=== PATIENT | female | born 1970 | race Caucasian/White ===

== ENCOUNTER 2016-06-03 17:29 | Emergency (ER) | payer SELFPAY ==
[~2016-06-03] VITALS: Ht 170.2 cm; Wt 69.9 kg
[~2016-06-03 17:29] MED LIST: BENZ-57 PO; LEVO100T7 PO; LPT40 PO; METF500T5 PO; PXL20 PO; SYMIN160 INH
[2016-06-03 17:33] VITALS: TEMP 36.9; Ht 170.2 cm; Wt 69.9 kg
[2016-06-03] MEDS ORDERED: VNTHFA/IN INH (18:40)
[2016-06-03] MEDS ORDERED: SODIUM CHLORIDE 0.9% 1000ML 1,000 ML IV STA (18:46)
[2016-06-03] MEDS ORDERED: ONDANSETRON INJ 2 MG/ML 2 ML VIAL IV STA (18:46)
[2016-06-03] MEDS ORDERED: DIPH-437 PO (18:56)
[2016-06-03] MEDS ORDERED: AMLO5CAP2 PO (19:05)
[2016-06-03 19:37] LABS: BASO % 0.5 %; BASO ABS # 0.04 K/uL (0-0.2); COMPLETE YES; EOS % 0.3 %; HEMATOCRIT 48.7 % (37-47); IG% 0.2 %; LYMPH % 23.5 %; LYMPH ABS # 2.06 K/uL (1.2-3.4); MEAN CELL VOLUME 77.9 fL (80-100); MEAN CORPUSCULAR HEMOGLOBIN 28.5 pg (25-34); MEAN CORPUSCULAR HGB CONC 36.6 g/dl (32-36); MEAN PLATELET VOLUME 9.2 fL (7.4-10.4); NEUT % 66.5 %; PLATELET COUNT 179 K/uL (130-400); RED BLOOD COUNT 6.25 M/uL (4.2-5.4); WHITE BLOOD COUNT 8.76 K/uL (4.8-10.8)
[2016-06-03 19:57] LABS: ALT/SGPT 32 U/L (12-78); AST/SGOT 21 U/L (15-37); BLOOD UREA NITROGEN 25 mg/dl (7-18); BUN/CREATININE RATIO 25.8 (10-20); CALCIUM 9.5 mg/dl (8.5-10.1); CARBON DIOXIDE 15 mmol/L (21-32); CHLORIDE 104 mmol/L (98-107); CREATININE 0.98 mg/dl (0.60-1.20); GLUCOSE 101 mg/dl (70-99); SODIUM 134 mmol/L (136-145)
[2016-06-03 20:00] LABS: ALKALINE PHOSPHATASE 90 U/L (45-117)
[2016-06-03] MEDS ORDERED: POTASSIUM CHLORIDE 10 MEQ / 100ML WTR IV STA (20:18)
[2016-06-03] MEDS ORDERED: POTASSIUM CHLORIDE 10 MEQ TABCR PO STA (20:18)
[2016-06-03 21:29] VITALS: BP 114/77; PULSE 88; O2SAT 98
[2016-06-03] MEDS ORDERED: ONDANSETRON HOME PACK 4MG OD TAB PO ONE (21:45)
--- NOTE | 2016-06-04 00:39 | EMERGENCY ROOM VISIT NOTE ---
History Report prepared by Jeanne: Lainey Payne Under the Supervision of: Dr. Efrain Hathaway M.D. First contact with patient: 18:40 Chief Complaint: DEHYDRATION Stated Complaint: SOB, FEVER, DEHYDRATION Nursing Triage Summary: Pt presents with c/o diarrhea since Sat night, decreased appetite, nausea. Pt states, "I have been trying to drink gingerale and gatorade, it's just not enough to keep my strength up. Any kind of exertion makes me sob." History of Present Illness The patient is a 46 year old female who presents to the Emergency Room with complaints of persistent diarrhea that began Wednesday. She currently rates her discomfort as a 5/10 in severity. The patient states that Wednesday she started with diarrhea and nausea, stating that her stool was loose and watery. She notes that she does not have a large intestine, so she states that her stool is always loose and watery. The patient states that today her diarrhea is worse than normal. She denies any recent antibiotic use or foreign travel. The patient denies any hematochezia or melena. She states that she has been trying to drink Gatorade, but states that she cannot keep anything in her. The patient denies any vomiting. She notes a decrease in appetite and states that she has had mild abdominal soreness. The patient states that today she has been feeling weak and dizzy, and notes her symptoms are worsening. She additionally notes that she had a fever, chills on Wednesday when her symptoms began. The patient notes sick contacts, stating that both her and granddaughter were sick with similar symptoms. Source of History: patient Onset: Wednesday Position: other (global) Symptom Intensity: 5/10 Quality: other (diarrhea) Timing: worsening, other (persistent) Associated Symptoms: + abdominal pain (soreness), + chills, + fevers, + nausea, + weakness, No hematochezia, No melena, No vomiting Review of Systems See HPI for pertinent positives & negatives. A total of 10 systems reviewed and were otherwise negative. Past Medical & Surgical Medical Problems: (1) Benign hypertension (2) diverticulosis (3) Small bowel obstruction Surgical Problems: (1) History of partial colectomy Family History Diabetes mellitus Hypertension Social History Smoking Status: Current Every Day Smoker Alcohol Use: none Drug Use: none Marital Status: Housing Status: lives with family Occupation Status: employed Current/Historical Medications Scheduled Acetaminophen/Diphenhydramine (Tylenol Pm), 2 TAB PO HS Albuterol Hfa (Ventolin Hfa), 1-2 PUFF INH Q4-6HRS Amlodipine/Benazepril (Lotrel 5MG/20MG), 1 CAP PO QAM Atorvastatin (Atorvastatin Calcium), 40 MG PO DAILY Levothyroxine Sodium (Levothyroxine Sodium), 100 MCG PO DAILY Metformin Hcl Er (Glucophage Er), 500 MG PO BID Allergies Coded Allergies: Latex (Verified Allergy, Severe, RASH,DYSPNEA, 05/07/15) Bupropion (Verified Allergy, Intermediate, Rash, 10/17/15) Penicillins (Verified Allergy, Unknown, 05/01/15) Clarithromycin (Verified Adverse Reaction, Mild, NAUSEA, METALLIC TASTE IN MOUTH, 10/17/15) Physical Exam Vital Signs Date Time Temp Pulse Resp B/P Pulse Ox O2 Delivery O2 Flow Rate FiO2 06/03/16 21:29 88 18 114/77 98 Room Air 06/03/16 20:42 89 18 122/73 98 Room Air 06/03/16 19:33 111 18 115/83 100 Room Air 06/03/16 19:23 91 16 116/84 97 Room Air 106 129/78 125 115/83 06/03/16 17:33 36.9 110 20 106/75 100 Room Air Physical Exam Constitutional: Vital signs reviewed. Eyes: Pupils are equal round reactive to light. Conjunctiva are noninjected. ENT: Pharynx is clear without erythema or exudate. Mucous membranes are dry. Neck supple without meningeal signs. Respiratory: Clear to auscultation bilaterally. Breath sounds are equal bilaterally. Cardiovascular: Regular rate and rhythm. No rubs or gallops. GI: Soft, nondistended and nontender. Bowel sounds are present. Musculoskeletal: No peripheral edema. No lower extremity tenderness. Integumentary: No cyanosis. Neurological: The patient is awake and alert. No focal deficits. Psychiatric: Normal affect. Medical Decision & Procedures Laboratory Results 06/03/16 19:20 Red Blood Count 6.25, Mean Corpuscular Volume 77.9, Mean Corpuscular Hemoglobin 28.5, Mean Corpuscular Hemoglobin Concent 36.6, Mean Platelet Volume 9.2, Neutrophils (%) (Auto) 66.5, Lymphocytes (%) (Auto) 23.5, Monocytes (%) (Auto) 9.0, Eosinophils (%) (Auto) 0.3, Basophils (%) (Auto) 0.5, Neutrophils # (Auto) 5.82, Lymphocytes # (Auto) 2.06, Monocytes # (Auto) 0.79, Eosinophils # (Auto) 0.03, Basophils # (Auto) 0.04 06/03/16 19:20 Test 06/03/16 19:20 White Blood Count 8.76 K/uL (4.8-10.8) Red Blood Count 6.25 M/uL (4.2-5.4) Hemoglobin 17.8 g/dL (12.0-16.0) Hematocrit 48.7 % (37-47) Mean Corpuscular Volume 77.9 fL (80-100) Mean Corpuscular Hemoglobin 28.5 pg (25-34) Mean Corpuscular Hemoglobin Concent 36.6 g/dl (32-36) Platelet Count 179 K/uL (130-400) Mean Platelet Volume 9.2 fL (7.4-10.4) Neutrophils (%) (Auto) 66.5 % Lymphocytes (%) (Auto) 23.5 % Monocytes (%) (Auto) 9.0 % Eosinophils (%) (Auto) 0.3 % Basophils (%) (Auto) 0.5 % Neutrophils # (Auto) 5.82 K/uL (1.4-6.5) Lymphocytes # (Auto) 2.06 K/uL (1.2-3.4) Monocytes # (Auto) 0.79 K/uL (0.11-0.59) Eosinophils # (Auto) 0.03 K/uL (0-0.5) Basophils # (Auto) 0.04 K/uL (0-0.2) RDW Standard Deviation 36.6 fL (36.4-46.3) RDW Coefficient of Variation 13.0 % (11.5-14.5) Immature Granulocyte % (Auto) 0.2 % Immature Granulocyte # (Auto) 0.02 K/uL (0.00-0.02) Anion Gap 15.0 mmol/L (3-11) Est Creatinine Clear Calc Drug Dose 69.0 ml/min Estimated GFR () 79.6 Estimated GFR (Non- 68.7 BUN/Creatinine Ratio 25.8 (10-20) Calcium Level 9.5 mg/dl (8.5-10.1) Total Bilirubin 0.6 mg/dl (0.2-1) Direct Bilirubin < 0.1 mg/dl (0-0.2) Aspartate Amino Transf (AST/SGOT) 21 U/L (15-37) Alanine Aminotransferase (ALT/SGPT) 32 U/L (12-78) Alkaline Phosphatase 90 U/L (45-117) Total Protein 8.5 gm/dl (6.4-8.2) Albumin 4.4 gm/dl (3.4-5.0) Lipase 151 U/L (73-393) Laboratory results as reviewed by me. Medications Administered Medications (Trade) Dose Ordered Sig/Kassy Route Start Time Stop Time Status Last Admin Dose Admin Sodium Chloride (Nss 1000ml) 1,000 ml @ 999 mls/hr Q1H1M STAT IV 06/03/16 18:46 06/03/16 19:46 DC 06/03/16 19:22 999 MLS/HR Ondansetron HCl (Zofran Inj) 4 mg NOW STAT IV 06/03/16 18:46 06/03/16 18:47 DC 06/03/16 19:23 4 MG Potassium Chloride (Kcl 10 Meq / Wtr) 10 meq NOW STAT IV 06/03/16 20:18 06/03/16 20:19 DC 06/03/16 20:26 10 MEQ Potassium Chloride (Klor-Con M10) 40 meq NOW STAT PO 06/03/16 20:18 06/03/16 20:19 DC 06/03/16 20:26 40 MEQ Ondansetron HCl (ZOFRAN ODT 4MG Home Pack) 1 homepack UD ONCE PO 06/03/16 21:45 06/03/16 21:46 DC 06/03/16 21:42 1 HOMEPACK ED Course 1841: The patient was evaluated in room C10. A complete history and physical exam was performed. 1845: Ordered Zofran Inj 4 mg IV, Sodium Chloride 1000 ml @ 999 mls/hr IV. 2107: I reevaluated the patient and she is feeling better. Ordered Potassium chloride 40 meq PO, Potassium Chloride 10 meq IV. 2136: I reevaluated the patient and she is feeling better. I discussed the exam findings with her and I discussed the treatment plan. She verbalized complete understanding and agreement. 2144: Ordered Zofran Odt 4 mg homepack 1 homepack PO. Medical Decision This is a 46-year-old female who presents with diarrhea. Differential diagnosis includes dehydration, foodborne illness, enteritis, electrolyte abnormality, dumping syndrome. I did perform a limited focused review of portions of the patient's old chart on the electronic medical record. The patient has had no recent pertinent visits to this hospital. I did evaluate the patient as noted above. The patient is presenting with diarrhea. Her family members had similar complaints. She is here because she feels dehydrated and nauseous. IV access was established. I did treat the patient with Zofran and normal saline IV. I did order and personally review the patient's 12-lead EKG and chest x-ray as described above. I did order and review the patient's blood work as noted in the electronic medical record. Her blood work is consistent with hemoconcentration and dehydration. She also has hypokalemia. She does have a history of chronic diarrhea with worsening diarrhea recently. She was given oral potassium and IV potassium. The patient was given a total of 1600 mL of normal saline. She did feel better. I did discuss the test results with her. She was discharged with a prescription for Zofran. Impression Primary Impression: Dehydration Additional Impressions: Hypokalemia Diarrhea Scribe Attestation The scribe's documentation has been prepared under my direct and personally reviewed by me in its entirety. I confirm that the note above accurately reflects all work, treatment, procedures, and medical decision making performed by me. Departure Information Dispostion Home / Self-Care Referrals Dhruv Javier M.D. (PCP) Forms HOME CARE DOCUMENTATION FORM, IMPORTANT VISIT INFORMATION, WORK / SCHOOL INSTRUCTIONS Patient Instructions Dehydration, Hypokalemia Dc, My [facility] Additional Instructions You have been examined and treated today on an emergency basis only. This is not a substitute for, or an effort to provide, complete comprehensive medical care. It is impossible to recognize and treat all injuries or illnesses in a single emergency department visit. It is therefore important that you follow up closely with your physician. Call as soon as possible for an appointment. Return for worsening symptoms or if you develop fever, vomiting, palpitations or any other concerning symptoms. Problem Qualifiers
== END 2016-06-03 21:42 | disposition home or self-care (01) ==
LOC: C.EDB 17:30 → C.EDC 21:42
DX: E86.0 Dehydration (principal); E87.6 Hypokalemia; R19.7 Diarrhea, unspecified; I10 Essential (primary) hypertension; F17.200 Nicotine dependence, unspecified, uncomplicated

== ENCOUNTER → 2016-12-18 | Outpatient (CLI) | payer OTHER ==
[~2016-12-18] MED LIST changes: +AMLO5CAP2 PO; -BENZ-57 PO; +DIPH-437 PO; -PXL20 PO; -SYMIN160 INH; +VNTHFA/IN INH
--- NOTE | 2016-12-18 12:52 | DIAGNOSTIC IMAGING REPORT ---
CHEST 2 VIEWS ROUTINE CLINICAL HISTORY: R05 Cough dyspnea COMPARISON STUDY: 10/15/2015 FINDINGS: The bones soft tissues and hemidiaphragms are normal. The cardiomediastinal silhouette is normal. The lungs are clear. The pulmonary vasculature is normal. IMPRESSION: Negative chest. The above report was generated using voice recognition software. It may contain grammatical, syntax or spelling errors. Electronically signed by: Dewey Woodward M.D. 12/18/2016 12:50 PM Dictated Date/Time: 12/18/2016 12:50 PM
--- NOTE | 2016-12-18 12:55 | DIAGNOSTIC IMAGING REPORT ---
LEFT SHOULDER 3 VIEWS HISTORY: Left shoulder pain. COMPARISON: None. FINDINGS: There is no fracture or dislocation. Left clavicle is intact. Soft tissues are unremarkable. No radiopaque foreign bodies. IMPRESSION: Unremarkable left shoulder. Electronically signed by: Paulie Woods M.D. 12/18/2016 12:54 PM Dictated Date/Time: 12/18/2016 12:52 PM
[2016-12-18 16:57] LABS: BASO % 0.4 %; BASO ABS # 0.04 K/uL (0-0.2); COMPLETE YES; HEMATOCRIT 41.7 % (37-47); IG% 0.3 %; LYMPH % 26.3 %; LYMPH ABS # 2.51 K/uL (1.2-3.4); MEAN CELL VOLUME 82.1 fL (80-100); MEAN CORPUSCULAR HGB CONC 34.1 g/dl (32-36); MEAN PLATELET VOLUME 9.4 fL (7.4-10.4); MONO % 4.4 %; NEUT % 66.6 %; PLATELET COUNT 174 K/uL (130-400); RED BLOOD COUNT 5.08 M/uL (4.2-5.4); WHITE BLOOD COUNT 9.56 K/uL (4.8-10.8)
[2016-12-18 17:08] LABS: BLOOD UREA NITROGEN 7 mg/dl (7-18); BUN/CREATININE RATIO 10.7 (10-20); CALCIUM 9.5 mg/dl (8.5-10.1); CARBON DIOXIDE 29 mmol/L (21-32); CHLORIDE 105 mmol/L (98-107); CREATININE 0.68 mg/dl (0.60-1.20); GLUCOSE 107 mg/dl (70-99); POTASSIUM 3.5 mmol/L (3.5-5.1); SODIUM 139 mmol/L (136-145)
== END | disposition home or self-care (01) ==
LOC: C.RADBC 11:55
PROVIDERS: ATTEND Internal Medicine
DX: R05 Cough (principal); M25.512 Pain in left shoulder

== ENCOUNTER 2017-07-23 15:19 | Emergency (ER) | payer OTHER ==
[~2017-07-23] VITALS: Ht 170.2 cm; Wt 65.0 kg
[2017-07-23 15:49] VITALS: TEMP 36.8; Ht 170.2 cm; Wt 65.0 kg
[2017-07-23 17:06] LABS: BASO % 0.3 %; BASO ABS # 0.02 K/uL (0-0.2); IG# 0.01 K/uL (0.00-0.02); LYMPH % 13.7 %; LYMPH ABS # 0.94 K/uL (1.2-3.4); MEAN CELL VOLUME 82.8 fL (80-100); MEAN CORPUSCULAR HEMOGLOBIN 27.6 pg (25-34); MEAN CORPUSCULAR HGB CONC 33.3 g/dl (32-36); MEAN PLATELET VOLUME 9.2 fL (7.4-10.4); MONO % 7.5 %; MONO ABS # 0.51 K/uL (0.11-0.59); NEUT % 78.4 %; NEUT ABS # 5.36 K/uL (1.4-6.5); PLATELET COUNT 189 K/uL (130-400); RED CELL DISTRIBUTION WIDTH CV 14.1 % (11.5-14.5); RED CELL DISTRIBUTION WIDTH SD 42.4 fL (36.4-46.3); WHITE BLOOD COUNT 6.84 K/uL (4.8-10.8)
[2017-07-23] MEDS ORDERED: ONDANSETRON INJ 2 MG/ML 2 ML VIAL IV STA (17:22)
[2017-07-23] MEDS ORDERED: SODIUM CHLORIDE 0.9% 1000ML 1,000 ML IV STA ×2 (17:22→18:35)
[2017-07-23 17:26] LABS: ALBUMIN 4.1 gm/dl (3.4-5.0); CALCIUM 9.4 mg/dl (8.5-10.1); CREATININE 0.88 mg/dl (0.60-1.20); POTASSIUM 3.6 mmol/L (3.5-5.1)
[2017-07-23 17:28] LABS: TOTAL PROTEIN 7.9 gm/dl (6.4-8.2)
[2017-07-23] MEDS ORDERED: LORA-741 PO (18:16)
[2017-07-23] MEDS ORDERED: TRAZ-122 PO (18:16)
--- NOTE | 2017-07-23 18:35 | EMERGENCY ROOM VISIT NOTE ---
ED Visit Note First contact with patient: 17:08 CHIEF COMPLAINT: Diarrhea, dehydration HISTORY OF PRESENTING ILLNESS: This is a 47-year-old female with past medical history of total colectomy secondary to diverticulitis and chronic diarrhea, who presents to the emergency department with complaint of worsening diarrhea for the past 3 days and concern for dehydration. Patient states she normally has anywhere from 5-8 episodes of loose and sometimes watery stool that is chronic for her. She states for the past 3 days she has been having anywhere from 15-20 episodes of watery stool and states that every time she eats or drinks it "runs right through me." She states that she has been having some associated nausea with this, and is concerned that she has not been keeping up with her fluids well enough, stating a concern for dehydration. She states that she has had episodes of severe diarrhea like this in the past secondary to her colectomy, and that this is not unusual for her. She denies any associated symptoms of fevers or chills, abdominal pain, vomiting, bloody or black stools, or urinary symptoms. She denies any recent travel, antibiotics, or hospitalization. REVIEW OF SYSTEMS: A complete 10 point review of systems was reviewed with the patient with pertinent positives and negatives as per history of present illness. All else were negative. PAST MEDICAL HISTORY: Reviewed in chart. SOCIAL HISTORY: Lives at home. Current everyday smoker. Denies alcohol or recreational drug use. ALLERGIES: Reviewed in chart. PHYSICAL EXAM: CONSTITUTIONAL: Pleasant and cooperative. No acute distress. Mildly dehydrated , but otherwise well appearing and well nourished. HEENT: Normocephalic, atraumatic. Pupils equal, round and reactive to light, EOMI. TMs normal. Pharynx normal. Tacky mucous membranes. NECK: Supple, full active range of motion without discomfort. No cervical adenopathy. RESPIRATORY: Clear to auscultation bilaterally with no wheezing, crackles, rhonchi or stridor. Equal expansion bilaterally. CARDIOVASCULAR: Regular rate and rhythm with no murmurs, rubs or gallops. Normal peripheral perfusion. No edema. GASTROINTESTINAL: Soft, nontender, nondistended. No rebound tenderness or guarding. No palpable masses or HSM. Bowel sounds present in all quadrants. No CVA tenderness. MUSCULOSKELETAL: Full range of motion of all joints without discomfort. INTEGUMENTARY: No rash or other significant dermatologic conditions noted. NEUROLOGIC: Alert and oriented X 4 with normal affect. Normal strength and sensation in all 4 extremities. No focal neurologic deficits noted. Normal speech. Normal gait observed. ED COURSE AND MEDICAL DECISION MAKING: CC: Patient presenting with complaint of diarrhea, dehydration DIFFERENTIAL DIAGNOSIS: Includes, but not limited to gastroenteritis, chronic diarrhea, dumping syndrome, dehydration, electrolyte abnormality, among others. INTERPRETATION OF LABS: No leukocytosis, no anemia, no significant electrolyte abnormalities, normal renal function, normal liver enzymes and lipase. Negative urine . MEDICATION RECONCILIATION: I attest that I have personally reviewed the patient 's current medication list. INITIAL VITAL SIGNS REVIEW: I reviewed the patient's initial vital signs and interpret them as follows: T: Afebrile; BP: Normotensive; HR: Tachycardic; RR : Within normal limits; Pulse Ox: Within normal limits on room air. Blood pressure screening: The patient was found to have normal blood pressure on screening and does not require follow-up for repeat blood pressure check. SUMMARY: Patient was evaluated at bedside, history and physical exam performed. Patient is alert and oriented, no acute distress, resting calmly in stretcher. Patient does appear mildly dehydrated is noted to be mildly tachycardic. The abdomen is soft and completely nontender on exam. Orders were placed at bedside for labs, UA and urine , IV fluids x2L for hydration, IV Zofran for nausea. Stool cultures ordered to rule out infection. Patient discussed with Dr. Hathaway, who agrees with my assessment and plan. Labs reviewed as above, unremarkable. Patient reassessed multiple times throughout ED stay, she reports that she is feeling much better after the IV fluids. She has been tolerating oral fluids without difficulty. She has been unable to provide a stool sample while in the emergency department , she was encouraged to seek stool studies through her PCP if she continues to have severe diarrhea. Patient was updated on all results and plan for discharge, she was encouraged to follow-up with her primary care provider. Patient was also given strict return precautions should her symptoms worsen, she verbalized understanding. Patient was discharged home in stable condition and ambulatory. Problem List Medical Problems: (1) Benign hypertension Status: Chronic (2) diverticulosis Status: Chronic Current/Historical Medications Scheduled Albuterol Hfa (Ventolin Hfa), 1-2 PUFF INH Q4-6HRS Amlodipine/Benazepril (Lotrel 5MG/20MG), 1 CAP PO QAM Atorvastatin (Lipitor), 40 MG PO DAILY Levothyroxine Sodium (Levothyroxine Sodium), 100 MCG PO DAILY Metformin Hcl Er (Glucophage Er), 500 MG PO BID Ondasetron Odt (Zofran Odt), 4 MG SL Q6H Trazodone Hcl (Desyrel), 100 MG PO HS Scheduled PRN Lorazepam (Ativan), 0.5 MG PO DAILY PRN for Anxiety/Agitation Allergies Coded Allergies: Latex (Verified Allergy, Severe, RASH,DYSPNEA, 07/23/17) Bupropion (Verified Allergy, Intermediate, Rash, 07/23/17) Penicillins (Verified Allergy, Unknown, 07/23/17) Clarithromycin (Verified Adverse Reaction, Mild, NAUSEA, METALLIC TASTE IN MOUTH, 07/23/17) Vital Signs Date Time Temp Pulse Resp B/P (MAP) Pulse Ox O2 Delivery O2 Flow Rate FiO2 07/23/17 21:40 78 18 116/68 98 07/23/17 20:14 78 18 106/55 98 Room Air 07/23/17 18:08 89 18 107/62 98 Room Air 07/23/17 15:49 36.8 109 20 114/74 95 Room Air Laboratory Results 07/23/17 15:33 Red Blood Count 5.80, Mean Corpuscular Volume 82.8, Mean Corpuscular Hemoglobin 27.6, Mean Corpuscular Hemoglobin Concent 33.3, Mean Platelet Volume 9.2, Neutrophils (%) (Auto) 78.4, Lymphocytes (%) (Auto) 13.7, Monocytes (%) (Auto) 7.5, Eosinophils (%) (Auto) 0.0, Basophils (%) (Auto) 0.3, Neutrophils # (Auto) 5.36, Lymphocytes # (Auto) 0.94, Monocytes # (Auto) 0.51, Eosinophils # (Auto) 0.00, Basophils # (Auto) 0.02 07/23/17 15:33 Test 07/23/17 15:33 White Blood Count 6.84 K/uL (4.8-10.8) Red Blood Count 5.80 M/uL (4.2-5.4) Hemoglobin 16.0 g/dL (12.0-16.0) Hematocrit 48.0 % (37-47) Mean Corpuscular Volume 82.8 fL (80-100) Mean Corpuscular Hemoglobin 27.6 pg (25-34) Mean Corpuscular Hemoglobin Concent 33.3 g/dl (32-36) Platelet Count 189 K/uL (130-400) Mean Platelet Volume 9.2 fL (7.4-10.4) Neutrophils (%) (Auto) 78.4 % Lymphocytes (%) (Auto) 13.7 % Monocytes (%) (Auto) 7.5 % Eosinophils (%) (Auto) 0.0 % Basophils (%) (Auto) 0.3 % Neutrophils # (Auto) 5.36 K/uL (1.4-6.5) Lymphocytes # (Auto) 0.94 K/uL (1.2-3.4) Monocytes # (Auto) 0.51 K/uL (0.11-0.59) Eosinophils # (Auto) 0.00 K/uL (0-0.5) Basophils # (Auto) 0.02 K/uL (0-0.2) RDW Standard Deviation 42.4 fL (36.4-46.3) RDW Coefficient of Variation 14.1 % (11.5-14.5) Immature Granulocyte % (Auto) 0.1 % Immature Granulocyte # (Auto) 0.01 K/uL (0.00-0.02) Anion Gap 9.0 mmol/L (3-11) Est Creatinine Clear Calc Drug Dose 76.0 ml/min Estimated GFR () 90.0 Estimated GFR (Non- 77.7 BUN/Creatinine Ratio 14.4 (10-20) Calcium Level 9.4 mg/dl (8.5-10.1) Total Bilirubin 0.4 mg/dl (0.2-1) Aspartate Amino Transf (AST/SGOT) 16 U/L (15-37) Alanine Aminotransferase (ALT/SGPT) 16 U/L (12-78) Alkaline Phosphatase 84 U/L (45-117) Total Protein 7.9 gm/dl (6.4-8.2) Albumin 4.1 gm/dl (3.4-5.0) Globulin 3.8 gm/dl (2.5-4.0) Albumin/Globulin Ratio 1.1 (0.9-2) Lipase 199 U/L (73-393) Medications Administered Medications (Trade) Dose Ordered Sig/Kassy Route Start Time Stop Time Status Last Admin Dose Admin Sodium Chloride 1,000 ml @ 999 mls/hr Q1H1M STAT IV 07/23/17 17:22 07/23/17 18:22 DC 07/23/17 18:05 999 MLS/HR Ondansetron HCl (Zofran Inj) 4 mg NOW STAT IV 07/23/17 17:22 07/23/17 17:24 DC 07/23/17 18:05 4 MG Sodium Chloride 1,000 ml @ 999 mls/hr Q1H1M STAT IV 07/23/17 18:35 07/23/17 19:35 DC 07/23/17 18:57 999 MLS/HR Ondansetron HCl (ZOFRAN ODT 4MG Home Pack) 1 homepack UD ONCE PO 07/23/17 21:30 07/23/17 21:31 DC 07/23/17 21:38 1 HOMEPACK Departure Information Impression Primary Impression: Diarrhea Additional Impression: Dehydration Dispostion Home / Self-Care Condition GOOD Prescriptions Ondasetron Odt (ZOFRAN ODT) 4 Mg Tab 4 MG SL Q6H for Nausea, #6 TAB Prov: Annie Balbuena CRNP 07/23/17 Referrals Dhruv Javier M.D. (PCP) Patient Instructions ED Dehydration, ED Diet [place], My [facility] Additional Instructions You have been evaluated and treated in the Emergency Department today for diarrhea and Dehydration. Laboratory results have ruled out any emergent reasons for further evaluation or admission. You have been prescribed Zofran to be taken as needed for severe nausea and/or vomiting. Take as prescribed. It is ESSENTIAL that you maintain adequate hydration with oral fluids! Some suggestions include: - Water is the IDEAL replacement for lost fluids. You should initially sip at the water to help facilitate increased intestinal absorption rate and to decrease the possibility of nausea/vomiting. - Carbohydrate/Electrolyte-Containing Drinks (i.e. Gatorade, Powerade, Pedialyte). All of these are good choices, but it is important to remember that all of these drinks contain a high concentration of sugar. - Popsicles, ice chips, and fruit juices are all other options. - My FAVORITE dehydration remedy is to mix a 1:1 solution of bottled Gatorade with bottled water. This dilution allows for a palatable flavor with added benefit of a reduction in the amount of sugar consumption. You should also follow a bland diet until your diarrhea is improving. Avoid any dairy products, spicy foods or other foods that are difficult to digest, until your diarrhea is improving. Please follow-up with your Primary Care Provider in 2-3 days for reevaluation. You should have a stool culture done by your PCP if you continue to have severe diarrhea. Return to the Emergency Department if your current symptoms worsen despite treatment course outlined above, or if you develop any of the following symptoms : Severe abdominal pain, persistent vomiting and unable to tolerate any fluids, bright red bloody stools or tarry black stools, decreased urination, severe dizziness or passing out, fevers >101.5, or any other concerns. Work Instructions Return To Work: 2 days Problem Qualifiers Primary Impression: Diarrhea Diarrhea type: due to malabsorption Qualified Codes: K90.9 - Intestinal malabsorption, unspecified; R19.7 - Diarrhea, unspecified
[2017-07-23] MEDS ORDERED: ONDANSETRON HOME PACK 4MG OD TAB PO ONE (21:30)
[2017-07-23] MEDS ORDERED: ONDA4TAB10 SL (21:30)
[2017-07-23 21:40] VITALS: BP 116/68; PULSE 78; O2SAT 98
== END 2017-07-23 21:40 | disposition home or self-care (01) ==
LOC: C.EDB 15:22 → C.EDC 21:40
DX: K90.9 Intestinal malabsorption, unspecified (principal); R19.7 Diarrhea, unspecified; E86.0 Dehydration; K57.90 Diverticulosis of intestine, part unspecified, without perforation or abscess without bleeding; I10 Essential (primary) hypertension; Z79.84 Long term (current) use of oral hypoglycemic drugs; Z79.899 Other long term (current) drug therapy; Z88.0 Allergy status to penicillin; Z88.8 Allergy status to other drugs, medicaments and biological substances; Z91.040 Latex allergy status; F17.200 Nicotine dependence, unspecified, uncomplicated

== ENCOUNTER 2019-11-17 10:11 | Observation (INO) ==
[2019-11-17] MEDS ORDERED: ASPIRIN CHEW 324 MG PO STA (10:38)
[2019-11-17] MEDS ORDERED: AMLODIPINE BESYLATE 5 MG TAB PO ONE (10:38)
[2019-11-17] MEDS ORDERED: SODIUM CHLORIDE 0.9% 500 ML IV SCH (10:45)
--- NOTE | 2019-11-17 10:45 | Emergency Department Note ---
Impression & Plan Precordial chest pain, Acute pancreatitis ED Provider Note NAME: CAROLINE MUÑOZ AGE: 49 SEX: F : 1970 ARRIVES VIA: Walk-In INFORMANT: [Patient] ED PROVIDER(S): [Wilfrido Willis MD] CHIEF COMPLAINT: Chest pain HISTORY OF PRESENT ILLNESS: The patient is a 49-year-old female who presents to the ER with a bout of chest pain yesterday that lasted for about 20 minutes. The pain was a 9/10. She was at rest when the pain came on. She felt pressure in the chest and thought maybe she had reflux. She took a bunch of Tums without relief. She eventually took some aspirin. The pain subsided. The pain did go to her left shoulder and back. She was short of breath and nauseated, no sweating. She has never had pain like this before, she has no known coronary disease. The patient spoke to her doctors office today, she was referred to the ER for a cardiac work-up. The patient did not take her blood pressure medication this morning. Her blood pressure was elevated this morning and she feels her heart is quicker than baseline. She has actually noticed some palpitations this entire week. The patient does have high cholesterol, borderline diabetes and high blood pressure. She is a smoker. No known coronary disease in her immediate family. REVIEW OF SYSTEMS: See HPI for pertinent positives and negatives. A total of ten systems were reviewed and were otherwise negative. PMHx/PSHx: See Below SOCIAL HISTORY: See Below. PHYSICAL EXAM: GENERAL: Patient is in no acute distress. HEENT: No acute trauma, normocephalic atraumatic, mucous membranes moist, no nasal congestion, no scleral icterus. NECK: No stridor, no adenopathy, no meningismus, trachea is midline. LUNGS: Clear to auscultation bilaterally, no wheeze, no rhonchi, breath sounds equal. HEART: Mildly tachycardic with an occasional extra beat, no murmurs. Chest: Nontender chest wall. ABDOMEN: Soft, nontender, bowel sounds positive, no hernias, no peritonitis. EXTREMITIES: No cyanosis or edema, full range of motion of all the joints without pain or difficulty, no signs for acute trauma. NEUROLOGIC: Oriented x 3, no acute motor or sensory deficits, no focal weakness. SKIN: No rash, no jaundice, no diaphoresis. DIFFERENTIAL DIAGNOSIS: Cardiac ischemia, aortic dissection, pulmonary embolism, pneumothorax, pneumonia, pericarditis, myocarditis, esophageal rupture, GERD, cholecystitis, pancreatitis, musculoskeletal, as well as other pathologies. EMERGENCY DEPARTMENT COURSE/PROCEDURES: ECG: Indication was chest pain. The ECG shows a sinus tachycardia with a rate of 112. PVCs are present. There is no ST elevation, there is a QTC of 674- quite prolonged. Continuous Cardiac Monitoring: An order was placed for continuous cardiac monitoring. The monitor shows a rate of 69 with normal sinus rhythm. MEDICAL DECISION MAKING: There is a slight leukocytosis at 12,000, this could be consistent with infection or the stress of her situation. There is a normal hemoglobin and platelet count. No coagulopathy. No significant electrolyte abnormality or kidney failure. No liver enzyme elevation. Lipase was elevated at over 1000 consistent with pancreatitis. ECG showed a sinus tachycardia, no acute ischemic change. Cardiac enzyme testing x1 was not consistent with acute cardiac injury. Chest film did not show pneumonia or pneumothorax. The patient received IV saline, she was given a dose of oral aspirin. She was given her typical dose of oral amlodipine, 5 mg. The patient presents with precordial chest pain that went to her shoulder and back. She does have significant cardiac risk factors. She may have pancreatitis as the cause for her discomfort however, I do think further cardiac work-up is warranted. I spoke to the patient and case management. Hospitalization is warranted. The on-call hospitalist was consulted. Past Med/Surg History Medical History Abdominal pain HTN (hypertension) Hyperlipidemia Hypokalemia Irritable bowel syndrome with diarrhea Situational stress Small bowel obstruction Type 2 diabetes mellitus Surgical History History of abdominal surgery History of cholecystectomy History of colonoscopy History of dilation and curettage History of hysterectomy History of partial colectomy History of tonsillectomy Family History Grandmother (Maternal) Diabetes Other COPD (chronic obstructive pulmonary disease) Hypothyroidism Social History Smoking Status: Current every day smoker Tobacco Type: Cigarettes Cigarettes Per Day: 20; Second Hand Exposure: No; Hx Alcohol Use: No Hx Substance Use: No Communication Ability: Effective Appeals Reviewer Veteran Required: No Beliefs That Will Affect Care: None marital status: Current Living Situation: Family current occupational status: employed current occupation: hospital switchboard Feels Safe at Home: Yes Allergies Allergies Allergy/AdvReac Type Severity Reaction Status Date / Time latex Allergy Severe RASH,DYSPNE Verified 11/17/19 11:17 A bupropion Allergy Intermediate Rash Verified 11/17/19 11:17 Penicillins Allergy Unknown Verified 11/17/19 11:17 clarithromycin AdvReac Mild NAUSEA, Verified 11/17/19 11:17 METALLIC TASTE IN MOUTH Home Meds Home Medications Medication Instructions Recorded Confirmed cholecalciferol (vitamin D3) 25 25 mcg PO QAM 08/18/19 11/17/19 mcg (1,000 unit) chewable tablet amlodipine-benazepril 1 cap PO QAM 11/17/19 11/17/19 atorvastatin 40 mg PO QAM 11/17/19 11/17/19 calcium carbonate [Calcium 500] 500 mg PO QAM 11/17/19 11/17/19 Previous Rx's Medication Instructions Recorded lorazepam 0.5 mg tablet 0.5 mg PO .COMPLEX #30 tab 01/14/19 meclizine 25 mg tablet 25 mg PO DAILY PRN #30 tab 01/14/19 levothyroxine 112 mcg tablet 112 mcg PO .COMPLEX #45 tab 08/18/19 levothyroxine 125 mcg tablet 125 mcg PO .COMPLEX #45 tab 08/18/19 Results & Data (ED) Vital Signs Vital Signs - 24 hr 11/17/19 10:16 11/17/19 10:38 11/17/19 10:39 Temperature 37.2 C Temperature Source Oral Pulse Rate 128 H 99 H Pulse Rate [Apical] Respiratory Rate 20 17 Respiratory Effort / Characteristics Non-Labored Respiratory Depth Normal Blood Pressure 153/82 H Blood Pressure [Left Arm] Blood Pressure Mean 105 Blood Pressure Mean [Left Arm] Pulse Oximetry 99 99 Oxygen Delivery Method Room Air Room Air Sepsis Recent Fever Within 48 Hours No Sepsis New/Unexplained Change in Mental Status N/A Sepsis Action Taken by Nursing No Action Required 11/17/19 11:00 11/17/19 11:23 11/17/19 11:30 Temperature Temperature Source Pulse Rate 92 H 94 H 86 Pulse Rate [Apical] Respiratory Rate 17 25 H 16 Respiratory Effort / Characteristics Respiratory Depth Blood Pressure 128/85 Blood Pressure [Left Arm] Blood Pressure Mean 94 Blood Pressure Mean [Left Arm] Pulse Oximetry Oxygen Delivery Method Sepsis Recent Fever Within 48 Hours Sepsis New/Unexplained Change in Mental Status Sepsis Action Taken by Nursing 11/17/19 12:14 Temperature Temperature Source Pulse Rate Pulse Rate [Apical] 80 Respiratory Rate 18 Respiratory Effort / Characteristics Respiratory Depth Blood Pressure Blood Pressure [Left Arm] 128/85 Blood Pressure Mean Blood Pressure Mean [Left Arm] 99 Pulse Oximetry 97 Oxygen Delivery Method Room Air Sepsis Recent Fever Within 48 Hours Sepsis New/Unexplained Change in Mental Status Sepsis Action Taken by Longterm Medications Current Medication List: was personally reviewed by me Laboratory Data Attestation: I reviewed the patient's lab results. Result diagrams: 11/17/19 10:30 11/17/19 10:30 Lab Results 11/17/19 11/17/19 11/17/19 Range/Units 10:30 10:30 10:30 WBC 12.83 H (4.8-10.8) K/uL RBC 5.47 H (4.2-5.4) M/uL Hgb 15.3 (12.0-16.0) g/dL Hct 45.0 (37-47) % MCV 82.3 (80-100) fL MCH 28.0 (25-34) pg MCHC 34.0 (32-36) g/dL RDW Std Deviation 40.7 (36.4-46.3) fL RDW Coeff of Briana 13.6 (11.5-14.5) % Plt Count 202 (130-400) K/uL MPV 9.0 (7.4-10.4) fL Immature Gran % (Auto) 0.2 % Neut % (Auto) 75.3 % Lymph % (Auto) 17.1 % Storey % (Auto) 6.0 % Eos % (Auto) 1.1 % Baso % (Auto) 0.3 % Neut # (Auto) 9.67 H (1.4-6.5) K/uL Lymph # (Auto) 2.19 (1.2-3.4) K/uL Storey # (Auto) 0.77 H (0.11-0.59) K/uL Eos # (Auto) 0.14 (0-0.5) K/uL Baso # (Auto) 0.04 (0-0.2) K/uL Immature Gran # (Auto) 0.02 (0.00-0.02) K/uL PT 10.5 (9.0-12.0) Seconds INR 1.0 (0.9-1.1) APTT 26.8 (21.0-31.0) Seconds PTT Ratio 1.0 Sodium 140 (136-145) mmol/L Potassium 3.5 (3.5-5.1) mmol/L Chloride 109 H (98-107) mmol/L Carbon Dioxide 24 (21-32) mmol/L Anion Gap 7.0 (3-11) BUN 9 (7-18) mg/dl Creatinine 0.79 (0.6-1.2) mg/dl Est Cr Clr Drug Dosing 82.8 ml/min Est GFR ( Amer) 101.2 Est GFR (Non-Af Amer) 87.3 BUN/Creatinine Ratio 11.2 (10-20) Glucose 115 H (70-99) mg/dl Calcium 9.0 (8.5-10.1) mg/dl Magnesium 2.0 (1.8-2.4) mg/dl Total Bilirubin 0.4 (0.2-1) mg/dl AST 17 (15-37) U/L ALT 19 (12-78) U/L Alkaline Phosphatase 85 (45-117) U/L Troponin I < 0.015 (0-0.045) ng/ml Total Protein 7.9 (6.4-8.2) gm/dl Albumin 3.9 (3.4-5.0) gm/dl Globulin 4.0 (2.5-4.0) gm/dl Albumin/Globulin Ratio 1.0 (0.9-2) Lipase 1159 H (73-393) U/L TSH 5.400 H (0.300-4.500) uIu/ml Administered Medications Lactated Ringer's (Lr) 1,000 mls @ 250 mls/hr IV .Q4H TUCKER Stop: 11/18/19 01:29 Last Admin: 11/17/19 17:42 Dose: 250 mls/hr Documented by: [id number] Insulin Aspart (Insulin Aspart 100 Units/Ml 3 Ml Pen) 0 units SC ACHS TUCKER Stop: 12/17/19 16:29 Last Admin: 11/17/19 17:37 Dose: Not Given Documented by: [id number] Cosigned by: [id number] Levothyroxine Sodium (Levothyroxine Sodium 112 Mcg Tablet) 112 mcg PO Q2D@0630 TUCKER Stop: 12/17/19 13:59 Last Admin: 11/17/19 17:42 Dose: 112 mcg Documented by: [id number] Discontinued Medications Amlodipine Besylate (Amlodipine Besylate 5 Mg Tab) 5 mg PO NOW ONE Stop: 11/17/19 10:39 Last Admin: 11/17/19 11:23 Dose: 5 mg Documented by: [id number] Aspirin (Aspirin Chew 324 Mg) 324 mg PO NOW STA Stop: 11/17/19 10:39 Last Admin: 11/17/19 11:22 Dose: 324 mg Documented by: [id number] Sodium Chloride (Nss) 500 mls @ 999 mls/hr IV .Q31M TUCKER Stop: 11/17/19 11:15 Last Infusion: 11/17/19 12:01 Dose: 0 mls/hr Documented by: [id number] Admin: 11/17/19 11:22 Dose: 999 mls/hr Documented by: [id number] Sodium Chloride (Nss 1000ml) 1,000 mls @ 125 mls/hr IV .Q8H TUCKER Stop: 12/17/19 13:32 Last Infusion: 11/17/19 17:37 Dose: 0 mls/hr Documented by: [id number] Admin: 11/17/19 14:06 Dose: 125 mls/hr Documented by: [id number] Imaging Data Radiologist's Impression: SINGLE VIEW CHEST CLINICAL HISTORY: Atypical chest pain. FINDINGS: An AP, portable, upright chest radiograph is compared to study dated 12/18/2016. The cardiomediastinal silhouette is unremarkable. There is bibasilar scarring/atelectasis. No airspace consolidation or pleural effusion is identified. No pneumothorax is seen. The skeletal structures appear osteopenic. The bony thorax is grossly intact. IMPRESSION: No active disease in the chest. Blood Pressure Blood Pressure Findings: Elevated blood pressure Blood Pressure Disposition: further management by hospitalist Discharge Plan Visit Data Chief Complaint: Chest Pain Stated Complaint: FILI BLOOD PRESSURE, CHEST DISCOMFITED ED Provider: Wilfrido Willis Discharge Problem: Precordial chest pain, Acute pancreatitis Patient Disposition: Admitted As Inpatient Condition: Good Discharge Instructions Interventions: ED Discharge Assessment Last Done: 11/17/19 12:58 Discharge Problem: Acute pancreatitis Qualifiers: Pancreatitis type: unspecified pancreatitis type Acute pancreatitis compl ication: no infection or necrosis Qualified Code(s): K85.90 - Acute pancreatitis without necrosis or infection, unspecified
[2019-11-17 10:52] LABS: Basophils # (auto) 0.04 K/uL (0-0.2); Basophils % (auto) 0.3 %; Eosinophils # (auto) 0.14 K/uL (0-0.5); Eosinophils % (auto) 1.1 %; Hemoglobin 15.3 g/dL (12.0-16.0); Immature Granulocytes # (auto) 0.02 K/uL (0.00-0.02); Immature Granulocytes % (auto) 0.2 %; Lymphocytes # (auto) 2.19 K/uL (1.2-3.4); Lymphocytes % (auto) 17.1 %; Mean Corpuscular Volume 82.3 fL (80-100); Monocytes # (auto) 0.77 K/uL (0.11-0.59); Neutrophils # (auto) 9.67 K/uL (1.4-6.5); Neutrophils % (auto) 75.3 %; Platelet Count 202 K/uL (130-400); RDW Coefficient of Variation 13.6 % (11.5-14.5); RDW Standard Deviation 40.7 fL (36.4-46.3); Red Blood Count 5.47 M/uL (4.2-5.4); White Blood Count 12.83 K/uL (4.8-10.8)
--- NOTE | 2019-11-17 10:56 | XRay Report ---
SINGLE VIEW CHEST CLINICAL HISTORY: Atypical chest pain. FINDINGS: An AP, portable, upright chest radiograph is compared to study dated 12/18/2016. The cardiom ediastinal silhouette is unremarkable. There is bibasilar scarring/atelectasis. No airspace consolida tion or pleural effusion is identified. No pneumothorax is seen. The skeletal structures appear osteo penic. The bony thorax is grossly intact. IMPRESSION: No active disease in the chest. ACT 112: Negative or not required by law. Electronically signed by: Wilfrido Latham M.D. 11/17/2019 10:55 AM
[2019-11-17 11:03] LABS: Partial Thromboplastin Time 26.8 Seconds (21.0-31.0); Prothrombin Time 10.5 Seconds (9.0-12.0)
[2019-11-17 11:11] LABS: Alanine Aminotransferase 19 U/L (12-78); Albumin Level 3.9 gm/dl (3.4-5.0); Aspartate Aminotransferase 17 U/L (15-37); BUN Creatinine Ratio 11.2 (10-20); Blood Urea Nitrogen 9 mg/dl (7-18); Carbon Dioxide 24 mmol/L (21-32); Chloride 109 mmol/L (98-107); Creatinine Clr Calc Pharmacy 82.8 ml/min; Est GFR (African American) 101.2; Est GFR (Non-African American) 87.3; Glucose 115 mg/dl (70-99); Lipase 1159 U/L (73-393); Potassium 3.5 mmol/L (3.5-5.1); Sodium 140 mmol/L (136-145)
[2019-11-17 11:22] LABS: Alkaline Phosphatase 85 U/L (45-117); Bilirubin,Total 0.4 mg/dl (0.2-1); Total Protein 7.9 gm/dl (6.4-8.2); Troponin I < 0.015 ng/ml (0-0.045)
--- NOTE | 2019-11-17 12:17 | History & Physical Report ---
Date of Service November 17, 2019 Assessment & Plan (1) Chest pain: - Admit to med surg for obs - Trend cardiac biomarkers, initial set was negative - EKG reviewed as above - Check 2 D echo - If negative enzymes can consider a stress test tomorrow morning. - Smoking cessation counseling provided at bedside - Check lipids and a1c with am lab for completeness (2) Epigastric pain: - Consult GI - Case - Hx of having small hiatal hernia from endoscopy completed in 2012, also with schatzki's ring s/p balloon dilation. - Elevated lipase at time of admission is concerning for possible pancreatitis vs gallstone? Pt with hx of cholecystectomy in the . Will order MRCP now, pt has not eaten today, keep NPO for now- may consider MRCP pending findings - CT abd/pelvis stat - trend lipase with am labs (3) Irritable bowel syndrome with diarrhea: - Stable, no c/o diarrhea or constipation (4) Continuous tobacco abuse: - Cessation encouraged - Smokes 1ppd since age 14 - pt refused nicotine patch - Does not wear supplemental O2 at baseline (5) HTN (hypertension): - Cont home amlodipine-benazepril - missed morning meds so was given a dose here in the ER - BP stable at 128/85 and pulse 80, improved compared to earlier today per pt report. Pt admits that anxiety plays a role in elevated BP and HR at baseline. (6) Hyperlipidemia: - Check lipid panel with am labs - Cont atorvastatin 40 mg qan (7) Type 2 diabetes mellitus: - Last A1C = 6.3 on 07/23/2018 - will recheck with am labs - ISS with accucheck achs, currently NPO, will allow HH/DM diet after MRCP (8) Hypothyroidism: - Continue alternating doses of levothyroxine 125 and 112 mcg - TSH 5.400 (9) DVT prophylaxis: - teds, ambulatory CODE: FULL Dispo: From home, likely dc within 1-2 days History of Present Illness Primary Care Provider: Dhruv Javier MD This is a 49 yo F with PMHx of HTN, HLD, IBS, DM II, hypokalemia and smoking 1 ppd x 35 years, who presents with acute onset of epigastric pain with radiation to the left shoulder which occurred yesterday afternoon and lasted 20-30 minutes. She was sitting talking on the phone with her mother, in a nonstressed environment, and it came on. She took some baby aspirin and the pain seemed to improve after that 30 min timeframe. She reports having an upset stomach last night, but was able to eat a little bit of chicken with dinner. This morning she called her PCP's office to see if they could see her in the office and had initially scheduled for 4:30 pm today. Upon taking her BP which was elevated in 145/100 and HR in 110s, the PCP instructed her to go to the ER. She denies lightheadedness, palpitations, flutter. Pt has not eaten anything today yet and feels slightly hungry. She has never experienced something like this before, and denies specific family history of early cardiac events. Her daughter is p resent with her at bedside. Allergies Allergy/AdvReac Type Severity Reaction Status Date / Time latex Allergy Severe RASH,DYSPNE Verified 11/17/19 11:17 A bupropion Allergy Intermediate Rash Verified 11/17/19 11:17 Penicillins Allergy Unknown Verified 11/17/19 11:17 clarithromycin AdvReac Mild NAUSEA, Verified 11/17/19 11:17 METALLIC TASTE IN MOUTH Home Medications Home Medications Medication Instructions Recorded Confirmed Type lorazepam 0.5 mg tablet 0.5 mg PO .COMPLEX #30 tab 01/14/19 11/17/19 Rx meclizine 25 mg tablet 25 mg PO DAILY PRN #30 tab 01/14/19 11/17/19 Rx cholecalciferol (vitamin D3) 25 25 mcg PO QAM 08/18/19 11/17/19 History mcg (1,000 unit) chewable tablet levothyroxine 112 mcg tablet 112 mcg PO .COMPLEX #45 tab 08/18/19 11/17/19 Rx levothyroxine 125 mcg tablet 125 mcg PO .COMPLEX #45 tab 08/18/19 11/17/19 Rx amlodipine-benazepril 1 cap PO QAM 11/17/19 11/17/19 History atorvastatin 40 mg PO QAM 11/17/19 11/17/19 History calcium carbonate [Calcium 500] 500 mg PO QAM 11/17/19 11/17/19 History Past Med/Surg History Medical History Abdominal pain HTN (hypertension) Hyperlipidemia Hypokalemia Irritable bowel syndrome with diarrhea Situational stress Small bowel obstruction Type 2 diabetes mellitus Surgical History History of abdominal surgery History of cholecystectomy History of colonoscopy History of dilation and curettage History of hysterectomy History of partial colectomy History of tonsillectomy Family History Grandmother (Maternal) Diabetes Other COPD (chronic obstructive pulmonary disease) Hypothyroidism Social History Smoking Status: Current every day smoker Tobacco Type: Cigarettes Cigarettes Per Day: 20; Second Hand Exposure: No; Hx Alcohol Use: No Hx Substance Use: No Communication Ability: Effective Bruise Trimmer Required: No Beliefs That Will Affect Care: None marital status: Current Living Situation: Family current occupational status: employed current occupation: hospital switchboard Feels Safe at Home: Yes Review of Systems Review of Systems: Constitutional: No fever, sweats or chills Eyes: No diplopia, no worsening or blurred vision ENT: normal hearing, no trouble swallowing Respiratory: No cough, sputum, dyspnea at rest or on exertion Cardiovascular: As per HPI, currently no chest pain, tightness or palpitations Abdomen: As per HPI, currently no pain, nausea, vomiting, diarrhea or constipation. Hx of gallbladder removal in early . Musculoskeletal: No joint pain, calf pain, swelling Neurologic: No weakness, numbness/tingling, or balance problems Psychiatric: No anxiety or depression Skin: No rash or itch Physical Exam Physical Exam: General: awake, alert, no apparent distress Head: Normocephalic, atraumatic ENT: PERRL, EOMI, no pharyngeal exudate, mucous membranes moist Chest: on room air, slightly coarse breath sounds throughout, +barrel chested, no wheezing, rales or rhonchi Cardiac: Regular rate and rhythm, no murmur, no JVD, normal peripheral pulses, good capillary refill Abdominal: NABS x 4 quadrants, soft, nondistended, nontender to palpation, no rebound, guarding or tenderness Extremities: Normal inspection, no peripheral edema or erythema, calfs nontender to palpation Psych: Normal mood and affect Neuro: AAO x 3, strength intact bilaterally and rated 5/5, no motor deficits, speech is clear, no peripheral sensory deficits Results & Data Results & Data ([facility]) Vital Signs (Past 12 Hours) Vital Signs Temp Pulse Resp BP Pulse Ox 11/17/19 10:39 99 11/17/19 10:16 37.2 C 128 H 20 153/82 H 99 Code Status & VTE Plan Code Status Full code - discussed with the pt and daughter at bedside Supervising Physician Co-Signing Physician Notes Attending Attestation and Admission Note - Pt seen/examined, chart reviewed, admission care plan d/w LITA Jolley. I agree w/ the cowart components of her admission documentation. 49yo female with tobacco dependence, HTN, hyperlipidemia, pre-DM -- presenting with episode of severe epigastric pain lasting 20-30 min yesterday evening. Pain radiated to left shoulder. No dyspnea. Pain was somewhat similar to her gall bladder pain she had experienced years ago. During my assessment she is resting comfortably with no dyspnea, chest pain or abdominal pain. She kamlesh ated clear liquid diet without GI symptoms. PMH, PSH, allergies, meds, sochx, famhx - reviewed VSS, no fever gen - NAD eyes - nonicteric neck - no JVD heart - RRR, s1 s2 lungs - CTA b/l abd - soft, NT, ND, BS+, no HSM ext - no edema labs reviewed -- lipase >1000 troponins negative EKG - NSR, PVCs, prolonged QTc, no ST changes echo - normal LV, normal wall motion; small pericardial effusion A/P: 1. epigastric pain - resolved 2. elevated lipase in setting of #1 - suspect mild acute pancreatitis; cause uncertain 3. chest discomfort/radiation of #1 to left shoulder - has CAD risk factors, but seems that current symptomatology more likely due to GI cause 4. small pericardial effusion 5. small amount of enteritis on CT abd/pelvis question of viral process causing acute pancreatitis, enteritis, and small pericardial effusion? or - is pericardial effusion separate issue from GI issues? MRCP today without CBD abnormalities or CBD stones; however, she could have passed a small gallstone causing the acute pancreatitis. either way she is improved. cont serial trops. LR hydration. clears. will need repeat echo as outpatient to ensure resolution/stability of pericardial effusion updated at bedside Johan Lopez MD PG Care Time/CCT Total # of Minutes Spent Total Time Spent with Patient: Total time spent is greater than 50% in coordination of care (as documented) at patient's floor/unit and/or counseling patient: Coding Level of Care Code 80444 OBS Care - Level 3 Diagnoses Chest pain R07.9 Epigastric pain R10.13 Irritable bowel syndrome with diarrhea K58.0 Continuous tobacco abuse Z72.0 HTN (hypertension) I10 Hyperlipidemia E78.5 Type 2 diabetes mellitus E11.9 Hypothyroidism E03.9 DVT prophylaxis Z29.9
--- NOTE | 2019-11-17 13:03 | Gastrointestinal Consultation ---
Date of Consultation November 17, 2019 Assessment & Plan (1) Epigastric pain: (2) Elevated lipase: (3) Acute pancreatitis: I would recommend aggressive fluid Hydration with LR at 250 cc/hr for 2 liters followed by LR 150 cc/hr Strict NPO Supportive care with antiemetics and narcotic analgesia as needed MRCP to be done today Recommend Pantoprazole 40 mg IV daily Further recommendations to follow History of Present Illness Reason for Consultation: Elevated Lipase History of Present Illness Laisha Kim presented to the ER today with complaints of epigastric abdominal pain which began yesterday around 4 PM. She states her pain began suddenly and was 9/10 in intensity, which radiated into her chest. She states that she did take some TUMS, but there was no improvement. She states that she continued to have pain and presented to the ER. Upon arrival to the ER she did have an unremarkable EKG. She was noted to have a slight elevation of her WBC count, and an elevated lipase level. She states that she had her GB removed in 1986. She denies any alcohol use. She denies any NSAID use. She has not had any endoscopic workup in "years." She denies any fevers, chills, nausea, vomiting, hematemesis, melena, hematochezia, jaundice, acholic stools, dark urine or pruritus. She was seen in the ER, and is waiting to undergo MRCP now. She does state that the pain has improved and rates her current pain as a 3/10 in intensity. She denies any further complaints. Allergies Allergy/AdvReac Type Severity Reaction Status Date / Time latex Allergy Severe RASH,DYSPNE Verified 11/17/19 11:17 A bupropion Allergy Intermediate Rash Verified 11/17/19 11:17 Penicillins Allergy Unknown Verified 11/17/19 11:17 clarithromycin AdvReac Mild NAUSEA, Verified 11/17/19 11:17 METALLIC TASTE IN MOUTH Home Medications Home Medications Medication Instructions Recorded Confirmed Type lorazepam 0.5 mg tablet 0.5 mg PO .COMPLEX #30 tab 01/14/19 11/17/19 Rx meclizine 25 mg tablet 25 mg PO DAILY PRN #30 tab 01/14/19 11/17/19 Rx cholecalciferol (vitamin D3) 25 25 mcg PO QAM 08/18/19 11/17/19 History mcg (1,000 unit) chewable tablet levothyroxine 112 mcg tablet 112 mcg PO .COMPLEX #45 tab 08/18/19 11/17/19 Rx levothyroxine 125 mcg tablet 125 mcg PO .COMPLEX #45 tab 08/18/19 11/17/19 Rx amlodipine-benazepril 1 cap PO QAM 11/17/19 11/17/19 History atorvastatin 40 mg PO QAM 11/17/19 11/17/19 History calcium carbonate [Calcium 500] 500 mg PO QAM 11/17/19 11/17/19 History Patient History Medical History Abdominal pain HTN (hypertension) Hyperlipidemia Hypokalemia Irritable bowel syndrome with diarrhea Situational stress Small bowel obstruction Type 2 diabetes mellitus Surgical History History of abdominal surgery History of cholecystectomy History of colonoscopy History of dilation and curettage History of hysterectomy History of partial colectomy History of tonsillectomy Family History Grandmother (Maternal) Diabetes Other COPD (chronic obstructive pulmonary disease) Hypothyroidism Social History Smoking Status: Current every day smoker Tobacco Type: Cigarettes Hx Alcohol Use: No Hx Substance Use: No marital status: current occupational status: employed current occupation: hospital switchboard Feels Safe at Home: Yes Review of Systems Constitutional: as per Subjective / HPI Eyes: as per Subjective / HPI Ear, Nose, Mouth, Throat: as per Subjective / HPI Respiratory: as per Subjective / HPI Cardiovascular: as per Subjective / HPI Gastrointestinal: as per Subjective / HPI Musculoskeletal: as per Subjective / HPI Integumentary: as per Subjective / HPI Neurologic: as per Subjective / HPI Psychiatric: as per Subjective / HPI Endocrine: as per Subjective / HPI Hematologic / Lymphatic: as per Subjective / HPI Allergy / Immunological: as per Subjective / HPI Physical Exam Constitutional: WD/WN, vitals as above Eyes: PERRL, conjunctivae normal, anicteric sclerae ENMT: external ear and nose normal, oropharynx normal Neck: trachea midline, no thyromegaly Respiratory: normal respiratory effort, lungs clear to auscultation Cardiovascular: RRR, no murmur, no edema Gastrointestinal (Abdomen): normal bowel sounds, soft, nontender, no hepatosplenomegaly Skin: no rashes, warm and dry Psychiatric: A+Ox3, euthymic affect Results & Data ([facility]) Vital Signs (Past 12 Hours) Vital Signs Temp Pulse Pulse Resp BP BP Pulse Ox 11/17/19 12:14 80 18 128/85 97 11/17/19 10:39 99 11/17/19 10:16 37.2 C 128 H 20 153/82 H 99 PG Care Time/CCT Total # of Minutes Spent Total Time Spent with Patient: Total time spent is greater than 50% in coordination of care (as documented) at patient's floor/unit and/or counseling patient: Coding Level of Care Code 03552 Inpt Consult Level 3 Diagnoses Epigastric pain R10.13 Elevated lipase R74.8 Acute pancreatitis K85.90
[2019-11-17] MEDS ORDERED: CARBOHYDRATES FOR HYPOGLYCEMIA PO PRN (13:33)
[2019-11-17] MEDS ORDERED: DEXTROSE 50% 50 ML SYRINGE IV PRN (13:33)
[2019-11-17] MEDS ORDERED: GLUCAGON FOR INJ 1 MG VIAL SQ PRN (13:33)
[2019-11-17] MEDS ORDERED: ONDANSETRON INJ 2 MG/ML 2 ML VIAL IV PRN (13:33)
[2019-11-17] MEDS ORDERED: SODIUM CHLORIDE 0.9% 1000ML 1,000 ML IV SCH (13:33)
[2019-11-17] MEDS ORDERED: MoRPHine SULFATE 2 MG/ML CARP IV PRN (13:33)
[2019-11-17] MEDS ORDERED: ACETAMINOPHEN 325 MG TAB PO PRN (13:33)
[2019-11-17] MEDS ORDERED: LORazepam 0.5 MG TAB PO PRN ×2 (13:33→14:00)
[2019-11-17] MEDS ORDERED: GLUCOSE 40% GEL 15 GM TUBE PO PRN (13:33)
[2019-11-17] MEDS ORDERED: GLUCOSE 10 TABS/TUBE PO PRN (13:33)
[2019-11-17] MEDS ORDERED: LEVOTHYROXINE SODIUM 112 MCG TABLET PO SCH (14:00)
[2019-11-17] MEDS ORDERED: PNEUMOCOCCAL Polysaccharide Vaccine 25mcg/0.5mL vial/Syr IM ONE (14:30)
--- NOTE | 2019-11-17 17:18 | Magnetic Resonance Report ---
MR MRCP HISTORY: eval for gallstone, elevated lipase, left-sided abdominal and chest pain TECHNIQUE: MRCP of the abdomen was performed without contrast according to standard department protoc ol. COMPARISON STUDY: Abdomen and pelvis CT 10/17/2015. FINDINGS: The lung bases are clear. There are few scattered T2 hyperintense lesions seen within the l iver and kidneys. These are incompletely characters on this noncontrast study but favor cysts. Domina nt lesion within the posterior segment of the right hepatic lobe measures 1.8 cm. These are not signi ficant change compared to the prior study. There is also a stable septated 1.7 cm T2 hyperintense les ion within the left hepatic lobe. This also favors a septated cyst. No hydronephrosis. The adrenal gl ands and pancreas are unremarkable. No retroperitoneal lymphadenopathy. Normal caliber abdominal aort a. Midline abdominal wall suture material is noted. Distended small bowel within the right side the a bdomen. This is improved compared the prior study and favors a partial small bowel obstruction. Prior cholecystectomy. No intra or extrahepatic bile duct dilatation. No filling defects within the common bile duct. The main pancreatic duct is also normal and course and caliber. Questionable focal areas of narrowing within the main pancreatic duct is likely due to the motion artifact. IMPRESSION: 1. Status post cholecystectomy. 2. No intra or extrahepatic bile duct dilatation. No filling defects within the common bile duct 3. Dilated loops of small bowel suggestive of a partial small bowel obstruction. This has improved in the interval. ACT 112: Negative or not required by law. Electronically signed by: Paulie Woods M.D. 11/17/2019 5:17 PM
[2019-11-17] MEDS: INSULIN ASPART 100 UNITS/ML 3 ML PEN SC SCH ×2 (17:37→20:37)
[2019-11-17] MEDS: LACTATED RINGER'S 1,000 ML IV SCH ×2 (17:42→21:46)
--- NOTE | 2019-11-17 17:57 | XCELERA ---
[id number] \\[id number]
[2019-11-17 18:55] VITALS: O2SAT 99
[2019-11-18] MEDS: LACTATED RINGER'S 1,000 ML IV SCH ×2 (01:50→08:02)
[2019-11-18 04:44] LABS: Hematocrit (blood only) 36.6 % (37-47); Hemoglobin 12.1 g/dL (12.0-16.0); Mean Corpuscular Hemoglobin 27.3 pg (25-34); Mean Corpuscular Hgb Conc 33.1 g/dL (32-36); Mean Corpuscular Volume 82.4 fL (80-100); Mean Platelet Volume 9.1 fL (7.4-10.4); Platelet Count 144 K/uL (130-400); RDW Coefficient of Variation 13.5 % (11.5-14.5); Red Blood Count 4.44 M/uL (4.2-5.4); White Blood Count 5.95 K/uL (4.8-10.8)
[2019-11-18 05:17] LABS: Albumin Level 2.8 gm/dl (3.4-5.0); BUN Creatinine Ratio 11.7 (10-20); Blood Urea Nitrogen 6 mg/dl (7-18); Carbon Dioxide 24 mmol/L (21-32); Chloride 113 mmol/L (98-107); Creatinine Clr Calc Pharmacy 130.9 ml/min; Est GFR (African American) 130.8; Est GFR (Non-African American) 112.9; Glucose 94 mg/dl (70-99); Lipase 95 U/L (73-393); Potassium 3.8 mmol/L (3.5-5.1); Sodium 142 mmol/L (136-145)
[2019-11-18 05:33] LABS: Alanine Aminotransferase 15 U/L (12-78); Alkaline Phosphatase 59 U/L (45-117); Aspartate Aminotransferase 13 U/L (15-37); Bilirubin,Total 0.4 mg/dl (0.2-1); Chol HDL Ratio 5; Cholesterol 100 mg/dl (0-200); Globulin 2.8 gm/dl (2.5-4.0); HDL Cholesterol 20 mg/dl; LDL Cholesterol Calculated 23 mg/dl; Total Protein 5.6 gm/dl (6.4-8.2); Triglycerides 287 mg/dl (0-150); Troponin I < 0.015 ng/ml (0-0.045); VLDL Cholesterol 57 mg/dl
[2019-11-18] MEDS ORDERED: IOVERSOL 100ml IV ONE (05:40)
[2019-11-18] MEDS ORDERED: LEVOTHYROXINE SODIUM 125 MCG TABLET PO SCH (06:30)
--- NOTE | 2019-11-18 06:59 | Electrocardiogram Report ---
Test Reason : Blood Pressure : / mmHG Vent. Rate : 112 BPM Atrial Rate : 112 BPM P-R Int : 080 ms QRS Dur : 096 ms QT Int : 372 ms P-R-T Axes : 053 099 047 degrees QTc Int : 508 ms Sinus tachycardia with frequent Premature ventricular complexes Rightward axis Prolonged QT Nonspecific T wave abnormality Abnormal ECG When compared with ECG of 02-AUG-2012 16:02, Premature ventricular complexes are now Present Vent. rate has increased BY 56 BPM T wave inversion less evident in Anterolateral leads Confirmed by Joseliot Cui ([id number]) on 11/18/2019 6:59:20 AM Referred By: REFERRED SELF Confirmed By:Joselito Cui
[2019-11-18 07:00] LABS: Estimated Average Glucose 131 mg/dl; Hemoglobin A1C 6.2 % (4.5-5.6)
--- NOTE | 2019-11-18 07:44 | CT Scan Report ---
CT abdomen pelvis wo/w con HISTORY: 49 years-old Female Eval for pancreatitis, gallstone, elevated lipase acute epigastric abdo makenzie pain with clinical concern for acute pancreatitis. History of prior subtotal colectomy. COMPARISON: MRCP 11/17/2019, CT abdomen and pelvis 10/17/2015 TECHNIQUE: Multiple axial CT images of the abdomen and pelvis were obtained both with and without the use of 93 mL IV contrast utilizing pancreatic protocol. A dose lowering technique was used consisten t with the principals deena QUEZADA. FINDINGS: There is mild subsegmental bibasilar atelectasis. No pneumatosis or pneumoperitoneum. Imaged inferior cardiac chambers are unremarkable. Mild hepatic steatosis. There are several scattered hepatic cysts measuring up to 1.8 cm. Patency of the hepatic and portal veins. Cholecystectomy. There is no intrah epatic or extrahepatic biliary ductal dilation. Normal appearance of the pancreas. No peripancreatic fluid collections, inflammatory stranding or pancreatic ductal dilation. No pancreatic mass lesion. S pleen and adrenal glands are unremarkable. There are least 3 nonobstructing calculi of the left kidney measuring up to 4 mm. There are at least 4-5 nonobstructing calculi of the right kidney measuring up to 3 mm. No definite ureteral calculi or obstructive uropathy. Unremarkable urinary bladder. Hysterectomy. Nonspecific trace free pelvic fluid . Mixed plaque of the abdominal aorta. No adenopathy. Postoperative changes of prior subtotal colectomy. The bowel gas pattern is nonobstructive. There is trace free fluid in the anterior central abdomen with mild wall thickening involving a loop of small bowel proximal to the anastomosis. Prominent 7 mm adjacent lymph node. Soft tissues are unremarkable. Bones appear intact. IMPRESSION: 1. Normal appearance of the pancreas without CT evidence of acute pancreatitis. 2. Postoperative changes of subtotal colectomy. No bowel obstruction. 3. Mild wall thickening involving a loop of small bowel proximal to the anastomosis is noted with adj acent perienteric stranding and trace free fluid, possibly reflective of a nonspecific enteritis. 4. Cholecystectomy. No biliary ductal dilation. 5. Nonobstructing bilateral nephrolithiasis. ACT 112: Negative or not required by law. The above report was generated using voice recognition software. It may contain grammatical, syntax o r spelling errors. Electronically signed by: Rick Tobias M.D. 11/18/2019 7:43 AM
[2019-11-18] MEDS: INSULIN ASPART 100 UNITS/ML 3 ML PEN SC SCH (08:02)
--- NOTE | 2019-11-18 08:06 | Hospitalist Progress Note ---
Date of Service November 18, 2019 Assessment & Plan (1) Chest pain: - - EKG reviewed no acute changes -ECHO 11/17/19 normal EF and LV size wit mild concentric LVH, normal RV size - negative troponin trend - Smoking cessation counseling provided at bedside - (2) Epigastric pain: - Consult GI - Case - Hx of having small hiatal hernia from endoscopy completed in 2012, also with schatzki's ring s/p balloon dilation. - mrcp 11/17/19 IMPRESSION: 1. Status post cholecystectomy. 2. No intra or extrahepatic bile duct dilatation. No filling defects within the common bile duct 3. Dilated loops of small bowel suggestive of a partial small bowel obstruction. This has improved in the interval. - CT abd/pelvis 11/17/19 IMPRESSION: 1. Normal appearance of the pancreas without CT evidence of acute pancreatitis. 2. Postoperative changes of subtotal colectomy. No bowel obstruction. 3. Mild wall thickening involving a loop of small bowel proximal to the anastomosis is noted with adjacent perienteric stranding and trace free fluid, possibly reflective of a nonspecific enteritis. 4. Cholecystectomy. No biliary ductal dilation. 5. Nonobstructing bilateral nephrolithiasis. - trend lipase has normalized will advance diet (3) Irritable bowel syndrome with diarrhea: - Stable, no c/o diarrhea or constipation (4) Continuous tobacco abuse: - Cessation encouraged - Smokes 1ppd since age 14 - pt refused nicotine patch - Does not wear supplemental O2 at baseline (5) HTN (hypertension): - Cont home amlodipine-benazepril - (6) Hyperlipidemia: - TC 100 hdl 20, ldl23 - Cont atorvastatin 40 mg qan (7) Type 2 diabetes mellitus: - Last A1C = 6.3 on 07/23/2018 -recehck 11/18/19 6.2 - ISS with accucheck achs, (8) Hypothyroidism: - Continue alternating doses of levothyroxine 125 and 112 mcg - TSH 5.400 Admission and Anticipated Discharge Date Admission Date: November 17, 2019 Results & Data Results & Data ([facility]) Vital Signs (Past 12 Hours) Vital Signs Temp Pulse Resp BP Pulse Ox 11/18/19 04:00 97.9 F 70 14 108/67 99 11/18/19 00:00 98.6 F 62 20 128/64 99 11/17/19 20:00 98.4 F 70 14 137/67 99 PG Care Time/CCT Total # of Minutes Spent Total Time Spent with Patient: Total time spent is greater than 50% in coordination of care (as documented) at patient's floor/unit and/or counseling patient: Coding Level of Care Code None Diagnoses Chest pain R07.9 Epigastric pain R10.13 Irritable bowel syndrome with diarrhea K58.0 Continuous tobacco abuse Z72.0 HTN (hypertension) I10 Hyperlipidemia E78.5 Type 2 diabetes mellitus E11.9 Hypothyroidism E03.9
[2019-11-18 08:25] VITALS: TEMP 98.2
[2019-11-18] MEDS ORDERED: ENALAPRIL MALEATE 10 MG TAB PO SCH (09:00)
[2019-11-18] MEDS ORDERED: AMLODIPINE BESYLATE 5 MG TAB PO SCH (09:00)
[2019-11-18] MEDS ORDERED: PANTOprazole 40 MG TAB PO SCH (09:00)
[2019-11-18] MEDS ORDERED: CHOLECALCIFEROL 1,000 UNITS 25 MCG TAB PO SCH (09:00)
[2019-11-18] MEDS ORDERED: CALCIUM CARBONATE 1250MG TAB PO SCH (09:00)
[2019-11-18] MEDS ORDERED: ATORVASTATIN 40 MG TAB PO SCH (09:00)
[2019-11-18 12:10] VITALS: BP 108/67; PULSE 70
--- NOTE | 2019-11-18 16:44 | Discharge Summary ---
Date of Service November 18, 2019 Admission HPI Per Admitting Provider This is a 49 yo F with PMHx of HTN, HLD, IBS, DM II, hypokalemia and smoking 1 ppd x 35 years, who presents with acute onset of epigastric pain with radiation to the left shoulder which occurred yesterday afternoon and lasted 20-30 minutes. She was sitting talking on the phone with her mother, in a nonstressed environment, and it came on. She took some baby aspirin and the pain seemed to improve after that 30 min timeframe. She reports having an upset stomach last night, but was able to eat a little bit of chicken with dinner. This morning she called her PCP's office to see if they could see her in the office and had initially scheduled for 4:30 pm today. Upon taking her BP which was elevated in 145/100 and HR in 110s, the PCP instructed her to go to the ER. She denies lightheadedness, palpitations, flutter. Pt has not eaten anything today yet and feels slightly hungry. She has never experienced something like this before, and denies specific family history of early cardiac events. Her daughter is present with her at bedside. Principal Diagnosis pancreatitis resolved Discharge Exam The patient appeared well Vital signs as documented. Lungs are clear to auscultation and appear unlabored Cardiac exam, Rhythm is regular.. No murmurs, rubs or gallops. Abdominal exam reveals normal bowel sounds, soft non tender, no masses Extremities are nonedematous and both pedal pulses are normal. Neurologic exam is alert and oriented, no focal loss of strength or sensation Skin is without bruises or rashes Psychologically is without concerns for anxiety or depression Discharge Data Allergies Allergy/AdvReac Type Severity Reaction Status Date / Time latex Allergy Severe RASH,DYSPNE Verified 11/17/19 11:17 A bupropion Allergy Intermediate Rash Verified 11/17/19 11:17 Penicillins Allergy Unknown Verified 11/17/19 11:17 clarithromycin AdvReac Mild NAUSEA, Verified 11/17/19 11:17 METALLIC TASTE IN MOUTH Consultations 11/17/19 12:01 ED Decision to Admit Stat 11/17/19 13:33 Consult Case Management - Discharge Planning Routine Consult Gastroenterology Routine Ordered Studies 11/17/19 12:40 MR MRCP Stat 11/17/19 13:33 CT abdomen pelvis wo/w con Urgent Hospital Course (1) Chest pain: - EKG reviewed no acute changes -ECHO 11/17/19 normal EF and LV size wit mild concentric LVH, normal RV size - negative troponin trend - Smoking cessation counseling provided at bedside - (2) Epigastric pain: - Hx of having small hiatal hernia from endoscopy completed in 2012, also with schatzki's ring s/p balloon dilation. - mrcp 11/17/19 IMPRESSION: 1. Status post cholecystectomy. 2. No intra or extrahepatic bile duct dilatation. No filling defects within the common bile duct 3. Dilated loops of small bowel suggestive of a partial small bowel obstruction. This has improved in the interval. - CT abd/pelvis 11/17/19 IMPRESSION: 1. Normal appearance of the pancreas without CT evidence of acute pancreatitis. 2. Postoperative changes of subtotal colectomy. No bowel obstruction. 3. Mild wall thickening involving a loop of small bowel proximal to the anastomosis is noted with adjacent perienteric stranding and trace free fluid, possibly reflective of a nonspecific enteritis. 4. Cholecystectomy. No biliary ductal dilation. 5. Nonobstructing bilateral nephrolithiasis. - lipase has normalized will advance diet (3) Irritable bowel syndrome with diarrhea: - Stable, no c/o diarrhea or constipation (4) Continuous tobacco abuse: - Cessation encouraged - Smokes 1ppd since age 14 - pt refused nicotine patch (5) HTN (hypertension): - Cont home amlodipine-benazepril - (6) Hyperlipidemia: - TC 100 hdl 20, ldl23 - Cont atorvastatin 40 mg qan (7) Type 2 diabetes mellitus: - Last A1C = 6.3 on 07/23/2018 -recehck 11/18/19 6.2 - ISS with accucheck achs, (8) Hypothyroidism: - Continue alternating doses of levothyroxine 125 and 112 mcg - TSH 5.400 Total Time Total Time Spent Total Time Spent (In Minutes): it took greater than 30 minutes to complete this discharge Discharge Plan Discharge Items Patient Disposition: Home - Self-Care Reason For Visit: CHEST PAIN,EPIGASTRIC PAIN Discharge Diagnosis: transient elevated lipase abdominal pain resolved Condition on Discharge: Good Activity: Resume your previous activity Non-emergency contact: Primary Care Provider Call non-emergency contact if: your symptoms worsen and your pain is not controlled Follow-up/Referrals: Dhruv Javier MD [Primary Care Provider] - Diet: Regular Addtl Attending Provider Instructions: please make a a follow up appointment with Dr Javier Pending Studies at Discharge: No Stand-Alone Forms: My [facility], Smoking Cessation Medications and DC Order Prescriptions: Continued levothyroxine 125 mcg tablet 125 mcg PO .COMPLEX Qty: 45 RF: 0 levothyroxine 112 mcg tablet 112 mcg PO .COMPLEX Qty: 45 RF: 0 lorazepam 0.5 mg tablet 0.5 mg PO .COMPLEX Qty: 30 RF: 0 meclizine 25 mg tablet 25 mg PO DAILY PRN (Reason: motion sickness) Qty: 30 RF: 0 cholecalciferol (vitamin D3) 25 mcg (1,000 unit) tablet,chewable 25 mcg PO QAM RF: 0 calcium carbonate [Calcium 500] 500 mg calcium (1,250 mg) Tablet 500 mg PO QAM RF: 0 atorvastatin 40 mg tablet 40 mg PO QAM RF: 0 amlodipine-benazepril 5-20 mg capsule 1 cap PO QAM RF: 0 Discharge Orders: Discharge Order (Routine); Ordered 11/18/19 Ordered By: Efrain Jacobo Admission Data Admit Date/Time: 11/17/19 12:27 Attending Provider: Efrain Jacobo Admit Provider: Johan Lopez Primary Care Provider: Dhruv Javier Other Providers: Johan Lopez ; Felipe Peacock Other Interventions: Discharge Summary Assessment (RN) Last Done: 11/18/19 12:09 Coding Level of Care Code D/C Day Management >30 mins Diagnoses Chest pain R07.9 Epigastric pain R10.13 Irritable bowel syndrome with diarrhea K58.0 Continuous tobacco abuse Z72.0 HTN (hypertension) I10 Hyperlipidemia E78.5 Type 2 diabetes mellitus E11.9 Hypothyroidism E03.9
== END 2019-11-18 12:36 | disposition home or self-care (01) ==
LOC: 1E 10:11 → ED 10:11 → SUATTDRO 12:27 → 1E 12:58